=== PATIENT | male | born 1960 | race Caucasian/White ===

== ENCOUNTER 2016-02-26 05:31 | Inpatient (IN) | payer OTHER ==
[2016-02-20 15:15] VITALS: BMI 23.0
[2016-02-22 13:20] LABS: BASO % 0.2 %; BASO ABS # 0.01 K/uL (0-0.2); COMPLETE YES; EOS % 0.6 %; HEMATOCRIT 44.4 % (42-52); IG% 0.2 %; LYMPH % 29.5 %; LYMPH ABS # 1.52 K/uL (1.2-3.4); MEAN CELL VOLUME 100.7 fL (80-100); MEAN CORPUSCULAR HEMOGLOBIN 33.6 pg (25-34); MEAN CORPUSCULAR HGB CONC 33.3 g/dl (32-36); MEAN PLATELET VOLUME 9.7 fL (7.4-10.4); MONO % 10.3 %; NEUT % 59.2 %; PLATELET COUNT 193 K/uL (130-400); RED BLOOD COUNT 4.41 M/uL (4.7-6.1); WHITE BLOOD COUNT 5.15 K/uL (4.8-10.8)
[2016-02-22 13:26] LABS: PROTHROMBIN TIME (PATIENT) 10.6 SECONDS (9.0-12.0)
--- NOTE | 2016-02-22 13:40 | DIAGNOSTIC IMAGING REPORT ---
CHEST 2 VIEWS ROUTINE CLINICAL HISTORY: Preoperative evaluation COMPARISON STUDY: No previous studies for comparison. FINDINGS: The lung volumes are normal. The lungs are clear. There is no pneumothorax or pleural effusion. Cardiac size is normal. Mediastinal contours are normal. There is no evidence of pulmonary edema. IMPRESSION: No acute cardiopulmonary findings. Electronically signed by: Tod Alba M.D. 02/22/2016 1:38 PM Dictated Date/Time: 02/22/2016 1:38 PM
[2016-02-22 13:47] LABS: CREATININE 0.9 mg/dl (0.60-1.40)
[2016-02-22 15:14] LABS: URINE APPEARANCE CLEAR (CLEAR); URINE BILIRUBIN NEG (NEG); URINE COLOR DK YELLOW; URINE NITRITE NEG (NEG); URINE PH 6.5 (4.5-7.5); UROBILINOGEN NEG (NEG); ZZUR CULT IF INDIC CLEAN CATCH NO
[2016-02-22 15:16] LABS: MANUAL MICROSCOPIC REQUIRED? NO; REVIEW REQ? NO
--- NOTE | 2016-02-23 09:54 | HISTORY & PHYSICAL EXAMINATION ---
DATE OF ADMISSION: 02/26/2016 CHIEF COMPLAINT: Left knee pain. 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 The patient rates his pain an 8/10. He has pain with his daily activities. He has limited standing and walking tolerance. Pain is worse with weightbearing. The patient has had injections, anti-inflammatories without relief. He has failed conservative treatment and is scheduled for left knee replacement. PAST MEDICAL HISTORY: GERD, osteoarthritis. He denies heart disease, diabetes or DVT. PAST SURGICAL HISTORY: Left shoulder clavicle pinning, right TKA 2008, right total hip replacement in 1996, right wrist partial fusion, tendon repair 2009, bilateral hip pinning age 10, and bilateral removal of hardware. SOCIAL HISTORY: The patient drinks 6-8 drinks per week. He denies tobacco use. He lives in a 2-story home. FAMILY HISTORY: Negative for DVT. MEDICATIONS: Celebrex 200 mg daily, Prilosec 20 mg daily, and a multivitamin. ALLERGIES: None. REVIEW OF SYSTEMS: See HPI. Ten other systems reviewed, all negative. PHYSICAL EXAMINATION: VITAL SIGNS: Height 5 foot 11 inches, weight 170 pounds, BMI is 24. GENERAL: This is a well-developed, well-nourished male who is alert and oriented x3. Mood and affect are appropriate. HEENT: Normocephalic, atraumatic. Mucous membranes are moist and intact. NECK: Supple without lymphadenopathy. HEART: Regular rate and rhythm without murmurs, rubs or gallops. LUNGS: Clear to auscultation without wheezes or rhonchi. ABDOMEN: Soft and nontender. Bowel sounds are equal and active. EXTREMITIES: No ecchymosis, redness or warmth. Thigh and calf are soft and nontender. He has neutral alignment. Range of motion is from 0-120 degrees with +3 to 4 medial laxity. He is neurovascularly intact with +5/5 strength. X-RAY EXAMINATION: AP and lateral views show joint space narrowing and osteophyte formation. IMPRESSION: Degenerative joint disease left knee. PLAN: The patient will be admitted for a left total knee arthroplasty. We will plan on aspirin for DVT prophylaxis. The patient is doing outpatient physical therapy.
[~2016-02-26] VITALS: Ht 180.3 cm; Wt 23.1 kg
[2016-02-26] VITALS (10 sets, daily range): BP systolic 110–175; BP diastolic 63–106; PULSE 61–74; TEMP 36.9–37; O2SAT 94–99; Ht 180.3 cm; Wt 23.1 kg
[~2016-02-26 05:31] MED LIST: CLB200 PO; MULTTAB58 PO; PRLSR20 PO
[2016-02-26] MEDS ORDERED: ROPIVACAINE 5MG/ML 30 ML 150 MG, BUPIVACAINE/EPINEPHR 0.5% MPF 30 ML, KETOROLAC TROMETH... INFIL SCH ×7 (06:00)
[2016-02-26] MEDS ORDERED: ACETAMINOPHEN 500 MG TAB PO SCH (06:00)
[2016-02-26] MEDS ORDERED: CEFAZOLIN 2000 MG/60 ML D5W 60 ML IV SCH (06:00)
[2016-02-26] MEDS ORDERED: VANCOMYCIN INJ 400 MG in NSS 100ML IR SCH (06:00)
[2016-02-26] MEDS ORDERED: OXYCODONE HCL 10 MG TABCR (OXYCONTIN) PO SCH (06:00)
[2016-02-26] MEDS ORDERED: DEXAMETHASONE 4 MG TAB PO SCH (06:00)
[2016-02-26] MEDS ORDERED: METOCLOPRAMIDE HCL 10 MG TAB PO SCH (06:00)
[2016-02-26] MEDS ORDERED: CeleBREX 200 MG CAP PO SCH (06:00)
[2016-02-26] MEDS ORDERED: POLYMYXIN B SULFATE 100,000 UNITS in NSS 100ML IR SCH (06:00)
[2016-02-26] MEDS ORDERED: GABAPENTIN 300 MG CAP PO SCH (06:00)
[2016-02-26] MEDS ORDERED: FAMOTIDINE 20 MG TAB PO SCH (06:00)
[2016-02-26] MEDS ORDERED: LACTATED RINGER'S 1000ML 500 ML IV ONE (06:00)
[2016-02-26] MEDS ORDERED: LACTATED RINGER'S 1000ML 1,000 ML IV SCH (06:00)
[2016-02-26] MEDS ORDERED: TRAMADOL HCL 50 MG TAB PO SCH (06:00)
[2016-02-26] MEDS: TRANEXAMIC ACID INJ 1,000 MG in SODIUM CHLORIDE 0.9% 100ML 100 ML IV SCH ×2 (06:16→06:30)
[2016-02-26] MEDS ORDERED: MIDAZOLAM HCL 1 MG/ML 2ML VIAL ONE ×3 (06:18→07:18)
[2016-02-26] MEDS ORDERED: FENTANYL CITRATE INJ 50 MCG/1 ML 2 ML VIAL ONE (06:18)
[2016-02-26] MEDS ORDERED: ONDANSETRON INJ 2 MG/ML 2 ML VIAL ONE (06:20)
[2016-02-26] MEDS ORDERED: LIDOCAINE HCL 2% 2 ML VIAL (20MG/ML) ONE (06:20)
[2016-02-26] MEDS ORDERED: PROPOFOL IV EMULSION 10 MG/ML 20 ML VIAL IV ONE ×2 (06:20→08:32)
[2016-02-26] MEDS ORDERED: BUPIVACAINE 0.5 % 5 MG/1 ML PF 10ML VIAL ONE (06:24)
[2016-02-26] MEDS ORDERED: BUPIVACAINE 0.25% 30 ML VIAL ONE (06:24)
[2016-02-26] MEDS ORDERED: ORTHO JOINT ANESTHETIC ONE (06:56)
--- NOTE | 2016-02-26 06:59 | History & Physical Bridge Note ---
H&P Re-Evaluation Bridge Note: I have examined the patient, reviewed the History & Physical and in the interval since the performance of the History & Physical I have noted the following changes of clinical significance: No changes noted
[2016-02-26] MEDS ORDERED: PHENYLEPHRINE HCL INJ 10 MG/ML VIAL ONE (07:33)
[2016-02-26] MEDS ORDERED: BACITRACIN 50000 UNIT VIAL IR ONE (08:03)
[2016-02-26] MEDS ORDERED: BUPIVACAINE/EPINEPHRINE 0.25% 1:200,000 30 ML VIAL INJ ONE (08:03)
[2016-02-26] MEDS ORDERED: POVIDONE-IODINE OP SOLN 30 ML BTL TOP ONE (08:24)
--- NOTE | 2016-02-26 08:24 | [facility] Post Operative Brief Note ---
Immediate Operative Summary Operative Date Feb 26, 2016. Pre-Operative Diagnosis Left Knee Degenerative Joint Disease Post-Operative Diagnosis Left Knee Degenerative Joint Disease Procedure(s) Performed Left Total Knee Arthroplasty Surgeon Dr. Hever Byrne [employer] Specialist Surgeon(s) SONNY Hess Estimated Blood Loss 50 ml Findings djd Specimens A. Left Knee Bone and Tissue Complication(s) None Disposition Recovery Room / PACU
[2016-02-26] MEDS ORDERED: MoRPHine SULFATE 2 MG/ML CARP IV PRN (08:30)
[2016-02-26] MEDS ORDERED: ZOLPIDEM TARTRATE 5 MG TAB PO PRN (08:30)
[2016-02-26] MEDS ORDERED: OXYCODONE HCL IR 5 MG TAB (IMMEDIATE RELEASE) PO PRN (08:30)
[2016-02-26] MEDS ORDERED: ONDANSETRON INJ 2 MG/ML 2 ML VIAL IV PRN ×2 (08:30→09:00)
[2016-02-26] MEDS ORDERED: BISACODYL 10 MG SUPP PR PRN (08:30)
[2016-02-26] MEDS ORDERED: ALUMINUM/MAGNESIUM/SIMETH (MAALOX MAX) 30 ML UDC PO PRN (08:30)
[2016-02-26] MEDS ORDERED: SOD PHOSPHATE/SOD BIPHOSPHATE ENEMA 132 ML BTL PR PRN (08:30)
[2016-02-26] MEDS ORDERED: METOCLOPRAMIDE HCL INJ 5 MG/ML 2 ML VIAL IV PRN (08:30)
[2016-02-26] MEDS ORDERED: DiphenhydrAMINE HCL 50 MG/ML VIAL IV PRN (08:30)
[2016-02-26] MEDS ORDERED: TRAMADOL HCL 50 MG TAB PO PRN (08:30)
[2016-02-26] MEDS ORDERED: MAGNESIUM HYDROXIDE SUSP 30 ML UDC PO PRN (08:30)
[2016-02-26] MEDS: MULTIVITAMIN TAB PO SCH (09:00)
[2016-02-26] MEDS ORDERED: MEPERIDINE HCL 25 MG/ML CARP IV PRN (09:00)
[2016-02-26] MEDS ORDERED: LABETALOL HCL IV 5 MG/ML 20ML IV PRN (09:00)
[2016-02-26] MEDS ORDERED: HYDROmorphone INJ 1 MG/ML SYR IV PRN (09:00)
[2016-02-26] MEDS ORDERED: ATROPINE SULFATE 0.1 MG/ML 5ML SYR IV PRN (09:00)
[2016-02-26] MEDS: PANTOprazole SOD 40 MG TAB PO SCH (09:00)
[2016-02-26] MEDS ORDERED: EpHEDrine SULFATE INJ 50 MG/ML AMP IV PRN (09:00)
[2016-02-26] MEDS ORDERED: FENTANYL CITRATE INJ 50 MCG/1 ML 2 ML VIAL IV PRN (09:00)
--- NOTE | 2016-02-26 09:18 | DIAGNOSTIC IMAGING REPORT ---
LEFT KNEE 1 OR 2 VIEWS ROUTINE CLINICAL HISTORY: Left knee degenerative arthritis. Arthroplasty. COMPARISON: None FINDINGS: Alignment of the total left knee arthroplasty is anatomic. There is no fracture or unexpected radiopaque foreign body. Drains are in place. IMPRESSION: Expected findings following total left knee arthroplasty. Electronically signed by: Tod Alba M.D. 02/26/2016 9:16 AM Dictated Date/Time: 02/26/2016 9:16 AM
[2016-02-26] MEDS: D5W AND 1/2NSS + 20MEQ KCL 1,000 ML IV SCH ×2 (11:50→21:40)
[2016-02-26] MEDS: KETOROLAC TROMETHAMINE 30 MG/ML VIAL IV. SCH ×3 (11:51→23:20)
[2016-02-26] MEDS: ACETAMINOPHEN 500 MG TAB PO SCH ×2 (14:08→22:16)
[2016-02-26] MEDS: CEFAZOLIN IV 2,000 MG in DEXTROSE 5% 50ML 50 ML IV SCH ×2 (14:08→23:00)
--- NOTE | 2016-02-26 14:28 | Anesthesiology Progress Note ---
Anesthesia Post Op Note Date & Time Feb 26, 2016 at 14:27 Vital Signs Pain Intensity: 0.0 Vital Signs Past 12 Hours Date Time Temp Pulse Resp B/P Pulse Ox O2 Delivery O2 Flow Rate FiO2 02/26/16 12:26 73 14 122/78 98 Nasal Cannula 2.0 02/26/16 11:26 63 16 123/79 99 Nasal Cannula 2.0 02/26/16 10:31 64 126/76 96 Nasal Cannula 2.0 02/26/16 10:00 61 16 114/71 98 Nasal Cannula 2.0 02/26/16 09:30 36.9 70 16 110/63 97 Nasal Cannula 2.0 02/26/16 09:30 96 Nasal Cannula 2.0 02/26/16 09:30 97 Nasal Cannula 2.0 02/26/16 09:20 37.0 74 16 106/64 97 Nasal Cannula 3 02/26/16 09:10 73 16 104/66 95 Nasal Cannula 3 02/26/16 09:00 76 20 101/61 94 Nasal Cannula 3 02/26/16 08:56 36.7 83 16 107/62 95 Nasal Cannula 3 02/26/16 05:45 37 74 20 161/106 97 Room Air Notes Neuraxial Anesthesia: was administered, sensory block is resolving Anesthetic Complications: no major complications apparent
[2016-02-26] MEDS ORDERED: TRANEXAMIC ACID INJ 1,000 MG in SODIUM CHLORIDE 0.9% 100ML 100 ML IV SCH (15:00)
--- NOTE | 2016-02-26 19:13 | OPERATIVE REPORT ---
DATE OF OPERATION: 02/26/2016 PREOPERATIVE DIAGNOSIS: Degenerative arthritis, left knee. POSTOPERATIVE DIAGNOSIS: Same. PROCEDURE: Left total knee replacement. SURGEON: Florentin Byrne MD VENEER SORTER: SONNY Hess. ANESTHESIA: Spinal. BLOOD LOSS: 50 mL. REPLACEMENT FLUIDS: 1800 mL of crystalloid. DRAINS: Hemovac x2. CULTURES: None. COMPLICATIONS: None. COMPONENTS USED: Byrne \T\ Nephew Journey Knee System: Femur size 6, tibia size 5 x 10, patella size 35. NOTE: SONNY Hess was present and assisted throughout due to the complicated nature of this case. She helped with preparation and setup, first assisted throughout and personally closed the capsule, subcutaneous and skin layers and applied the postoperative dressing. DESCRIPTION: Following satisfactory spinal, the patient was supine. A tourniquet was placed but not inflated. The lower extremity was prepared with ChloraPrep and draped in a sterile fashion. Following a surgical time-out, a midline incision was made with a trivector approach. The knee showed severe grade 4 changes in the medial and patellofemoral compartments. The anterior cruciate ligament was deteriorated. The cruciate ligaments were excised. The patient matched femoral block was applied. Femoral distal rotation and resection were set and completed. The 4-in-1 block was used to finish preparation of the femur. The patient matched tibial block was applied. Tibial resection was completed. Patella was freehand cut and soft tissue balancing was completed in flexion and extension. A trial reduction showed good tension and stability on the collateral ligaments, stable range of motion, and the patella tracked well. The trial components were removed. The capsule was prepared with the orthopedic cocktail and after irrigation, the components were cemented using Simplex G cement. A Betadine soak was performed. When the cement had hardened, the Betadine was irrigated. Two drains were placed. The arthrotomy was closed with a running suture of 0 V-Loc. The subcutaneous tissues with 2-0 Vicryl and the skin with a running subcuticular stitch of 3-0 V-Loc. Dermabond and a dry dressing were applied. The patient was returned to his bed in stable condition. I attest to the content of the Intraoperative Record and any orders documented therein. Any exceptio ns are noted below.
[2016-02-26] MEDS ORDERED: SENNA 8.6 MG TAB PO SCH (21:00)
[2016-02-26] MEDS: OXYCODONE HCL 10 MG TABCR (OXYCONTIN) PO SCH (21:00)
[2016-02-26] MEDS: ASPIRIN 81 MG ECTAB PO SCH (21:39)
[2016-02-27 03:35] VITALS: BP 162/96; PULSE 62; TEMP 36.8; O2SAT 98
[2016-02-27] MEDS: ACETAMINOPHEN 500 MG TAB PO SCH (06:07)
[2016-02-27] MEDS: D5W AND 1/2NSS + 20MEQ KCL 1,000 ML IV SCH (06:08)
[2016-02-27] MEDS: KETOROLAC TROMETHAMINE 30 MG/ML VIAL IV. SCH (06:08)
[2016-02-27 07:02] LABS: HEMATOCRIT 39.3 % (42-52); MEAN CELL VOLUME 101.6 fL (80-100); MEAN CORPUSCULAR HEMOGLOBIN 34.1 pg (25-34); MEAN CORPUSCULAR HGB CONC 33.6 g/dl (32-36); MEAN PLATELET VOLUME 10.3 fL (7.4-10.4); PLATELET COUNT 191 K/uL (130-400); RED BLOOD COUNT 3.87 M/uL (4.7-6.1); WHITE BLOOD COUNT 9.94 K/uL (4.8-10.8)
[2016-02-27 07:35] LABS: BUN/CREATININE RATIO 17.6 (10-20); CALCIUM 8.5 mg/dl (8.5-10.1); POTASSIUM 4.1 mmol/L (3.5-5.1)
--- NOTE | 2016-02-27 07:59 | Anesthesiology Progress Note ---
Anesthesia Post Op Note Date & Time Feb 27, 2016 at 07:58 Vital Signs Pain Intensity: 1.0 Vital Signs Past 12 Hours Date Time Temp Pulse Resp B/P Pulse Ox O2 Delivery O2 Flow Rate FiO2 02/27/16 03:35 36.8 62 18 162/96 98 Room Air 02/26/16 23:30 Room Air 02/26/16 23:23 36.9 70 18 175/100 97 Room Air 02/26/16 20:18 162/104 02/26/16 20:04 36.9 70 18 155/101 97 Room Air Notes Mental Status: alert / awake / arousable, participated in evaluation Pt Amnestic to Procedure: Yes Nausea / Vomiting: adequately controlled Pain: adequately controlled Airway Patency, RR, SpO2: stable & adequate BP & HR: stable & adequate Hydration State: stable & adequate Neuraxial Anesthesia: sensory block resolved Anesthetic Complications: no major complications apparent
--- NOTE | 2016-02-27 08:02 | Discharge Instructions ---
Discharge Instructions Admission Reason for Admission: Left Knee Degenerative Arthritis Discharge Discharge Diagnosis / Problem: sp left TKA Discharge Goals Goal(s): Decrease discomfort, Improve function, Increase independence Activity Recommendations Activity Limitations: per Instructions/Follow-up section . Instructions / Follow-Up Instructions / Follow-Up ACTIVITY RECOMMENDATIONS: SELF CARE INSTRUCTIONS AFTER TOTAL KNEE REPLACEMENT A. You may need to continue a physical therapy program after discharge from the hospital. There are several options available to you. Your doctor will assist you in selecting the best one for you. 1. An out-patient facility 2 to 3 times a week for therapy or home therapy. 2. Continue working on all exercises taught to you in the hospital. Your goals should be to increase bending of your knee to 90 degrees and beyond and to fully straighten your knee. B. You may progress at your own pace from walking with a walker or crutches to a cane; then to no assistive devices. C. Make walking a part of your daily routine. Be up as much as comfortable with rest periods throughout the day. Rest with leg elevation is very important. Use the ice wrap frequently for the first 3-4 weeks. D. There are no restrictions on activities. You may ride in a car, shop, participate in strategy analyst and all social activities. E. Wear the long elastic stockings (JANELLE hose) 20 hours a day for 2 weeks after surgery. They can be removed several times a day for laundering and for a bath. F. You may shower, no tub baths until cleared by your doctor. SPECIAL CARE INSTRUCTIONS: VERY IMPORTANT TO READ AND REVIEW A. There are a few signs you need to watch for after you are home. Call [facility] if you notice any of the followin. Increased severe knee pain. Some pain is expected especially when you exercise. 2. Increased swelling in your leg or knee; pain or swelling of the calf muscle in either lower leg. 3. Any fluid drainage from the incision. 4. Shortness of breath or chest pain. B. Please call [facility] at if you have any concerns or questions about your operation or recovery. The doctor or his nurse will return your call promptly. C. You must take antibiotics before dental work, bladder, bowel or other surgery. Your doctor will provide you with a permanent care to carry describing this precaution. IMPORTANT: * REMEMBER TO TAKE ASPIRIN, 81 MG, TWICE DAILY FOR 4 WEEKS UNLESS OTHERWISE DIRECTED. THIS IS YOUR BLOOD THINNER. * HIGH RISK PATIENTS MAY BE PRESCRIBED A STRONGER BLOOD THINNER. THIS WILL BE PROVIDED AT DISCHARGE. * CALL IF INCREASED PAIN, REDNESS, DRAINAGE OR FEVER GREATER THAT 101. * WEAR JANELLE HOSE 20 HOURS PER DAY FOR 2 WEEKS. DERMABOND Prineo- This is a mesh tape dressing that is covered with glue. It should remain in place until the incision is properly healed, usually 10-14 days. This dressing is designed to naturally slough off. You may trim the excess mesh tape as it peels off. Incision may be briefly wet in a shower. Dry immediately by blotting with a clean, dry towel. Do not bath or swim until instructed by your doctor. Do not scratch, rub, or pick at the dressing. Do not apply any topical ointments or lotions until dressing is completely removed and/or instructed by your doctor. There may be a small piece of suture material at one end of your incision. Do not pull or trim this. If it is bothersome or catching on clothing, you may cover it with a band-aid. FOLLOW UP VISIT: If appointment is not already scheduled: Please call [facility] to make a follow-up appointment for 2 weeks after your surgery at . Current Hospital Diet Patient's current hospital diet: Regular Diet Discharge Diet Recommended Diet: Regular Diet Procedures Procedures Performed: Left Total Knee Arthroplasty Pending Studies Studies pending at discharge: no Medical Emergencies . Who to Call and When: Medical Emergencies: If at any time you feel your situation is an emergency, please call 911 immediately. . Non-Emergent Contact Non-Emergency issues call your: Primary Care Provider . "Provider Documentation" section prepared by Ariane Esteban. VTE Core Measure Inpt VTE Proph given/why not?: Other Anticoagulation, T.E.D. Stockings, SCD's
[2016-02-27] MEDS ORDERED: ACET-1138 PO (08:04)
[2016-02-27] MEDS ORDERED: ASPEC81 PO (08:05)
[2016-02-27] MEDS ORDERED: RXC5 PO (08:05)
[2016-02-27] MEDS ORDERED: CLB200 PO (08:05)
[2016-02-27] MEDS ORDERED: MORP-157 PO (08:05)
[2016-02-27] MEDS ORDERED: ONDA8TAB6 PO (08:05)
[2016-02-27] MEDS ORDERED: SNK PO (08:05)
--- NOTE | 2016-02-27 08:07 | Orthopedic Progress Note ---
Orthopedic Progress Note Date of Service Feb 27, 2016. Subjective Post OP Day: 1 Reports: feeling well, pain controlled w PO medications, Denies: SOB, chest pain , complaints, light headedness, nausea / vomiting Objective calves soft nontender, N/V intact, dressing C/D/I, A&O x3, toes mobile, hemovac drainage (150 LAST SHIFT ) Date Time Temp Pulse Resp B/P Pulse Ox O2 Delivery O2 Flow Rate FiO2 02/27/16 07:58 Room Air 02/27/16 03:35 36.8 62 18 162/96 98 Room Air 02/26/16 23:30 Room Air 02/26/16 23:23 36.9 70 18 175/100 97 Room Air 02/26/16 20:18 162/104 02/26/16 20:04 36.9 70 18 155/101 97 Room Air 02/26/16 16:00 Room Air 02/26/16 15:36 36.9 73 18 155/88 94 Room Air 02/26/16 12:26 73 14 122/78 98 Nasal Cannula 2.0 02/26/16 11:26 63 16 123/79 99 Nasal Cannula 2.0 02/26/16 10:31 64 126/76 96 Nasal Cannula 2.0 02/26/16 10:00 61 16 114/71 98 Nasal Cannula 2.0 02/26/16 09:30 36.9 70 16 110/63 97 Nasal Cannula 2.0 02/26/16 09:30 96 Nasal Cannula 2.0 02/26/16 09:30 97 Nasal Cannula 2.0 02/26/16 09:20 37.0 74 16 106/64 97 Nasal Cannula 3 02/26/16 09:10 73 16 104/66 95 Nasal Cannula 3 02/26/16 09:00 76 20 101/61 94 Nasal Cannula 3 02/26/16 08:56 36.7 83 16 107/62 95 Nasal Cannula 3 Laboratory Results 24 Hours: Test 02/27/16 06:10 Hematocrit 39.3 % Hemoglobin 13.2 g/dL Assessment & Plan Assessment: POD 1 TKA Plan: HOME TODAY W OPPT WILL LEAVE DRAIN IN WILL DC TOMORROW IN OFFICE Inhouse Planning Pain Management: Celebrex, Oxycontin, PO Tylenol, Oxy IR DVT Prophylaxis: TEDs, SCDs, ASA Discharge Planning Discharge Planning: home with oppt Pain Management: Celebrex, Oxycontin, PO Tylenol, Oxy IR DVT Prophylaxis: TEDs, ASA Therapy: Physical Therapy
[2016-02-27 08:22] VITALS: BP 161/111; PULSE 59; TEMP 37; O2SAT 99
[2016-02-27] MEDS: ASPIRIN 81 MG ECTAB PO SCH (08:42)
[2016-02-27] MEDS: PANTOprazole SOD 40 MG TAB PO SCH (08:42)
[2016-02-27] MEDS: OXYCODONE HCL 10 MG TABCR (OXYCONTIN) PO SCH (08:43)
[2016-02-27] MEDS: MULTIVITAMIN TAB PO SCH (08:43)
[2016-02-27 08:49] VITALS: PULSE 59; TEMP 37; O2SAT 99
[2016-02-27 09:04] VITALS: BP 142/84
[2016-02-28] MEDS ORDERED: CeleBREX 200 MG CAP PO SCH (21:00)
--- NOTE | 2016-03-12 12:08 | DISCHARGE SUMMARY ---
DISCHARGE DIAGNOSIS: Degenerative joint disease left knee. SECONDARY DIAGNOSIS: None. CONSULTS: None. COMPLICATIONS: None. PROCEDURE: The patient underwent a left total knee arthroplasty with Dr. Byrne on 02/26/2016. BRIEF HISTORY: Please see previously dictated history and physical. HOSPITAL SUMMARY: The patient was admitted on the above day for the above procedure. Procedure went without complication. Postop day 1, the patient was feeling well without complaints. He denied chest pain or shortness of breath. Vital signs were stable. He was afebrile. Dressing was clean, dry and intact. He was neurovascularly intact. Calves were soft and nontender. Hemovac drained 150 mL. Hemoglobin was 13.2. The patient began physical therapy per protocol. He was discharged to home later that day in stable condition. For further review please see the chart. Lab, x-ray data and discharge instructions as per chart.
== END 2016-02-27 12:37 | disposition home or self-care (01) | DRG 470 ==
LOC: ENRESERVDT → ENRESERVTM → C.ACU 05:31 → C.3E 05:41
PROVIDERS: ADMIT Orthopaedic Surgery; ATTEND Orthopaedic Surgery
PROC: 0SRD0J9 Replacement of Left Knee Joint with Synthetic Substitute, Cemented, Open Approach (ICD-10-PCS; principal; 2016-02-26 07:15)
DX: M17.12 Unilateral primary osteoarthritis, left knee (principal); K21.9 Gastro-esophageal reflux disease without esophagitis; Z96.651 Presence of right artificial knee joint; Z96.641 Presence of right artificial hip joint; Z98.1 Arthrodesis status; Z79.1 Long term (current) use of non-steroidal anti-inflammatories (NSAID); Z79.899 Other long term (current) drug therapy